=== PATIENT | male | born 1990 | race Caucasian/White ===

== ENCOUNTER → 2017-04-25 | Outpatient (CLI) | payer OTHER ==
[~2017-04-25] MED LIST: AUGMENTIN 500 M1 TAB PO; KEFLEX 500MG.500 MG PO; MEDROL 4MG. DOSE4 MG PO; PROTONIX 40MG T40 MG PO
[2017-04-28 04:39] LABS: Rapid Plasma Reagin, Quant Non Reactive (NonRea<1:1)
[2017-04-28 05:35] LABS: HBsAg Screen Negative (Negative); HIV Screen 4th Generation wRfx Non Reactive (Non Reactive); Hep A Ab, IgM Negative (Negative); Hep B Core Ab, IgM Negative (Negative); Hep C Virus Ab <0.1 (0.0-0.9)
== END ==
LOC: LAB 17:21
PROVIDERS: Internal Medicine Adolescent Medicine
DX: A56.01 Chlamydial cystitis and urethritis (principal); Z11.3 Encounter for screening for infections with a predominantly sexual mode of transmission
CPT/HCPCS: G0432

== ENCOUNTER 2017-04-28 17:40 | Emergency (ER) | payer BC ==
[~2017-04-28] VITALS: Ht 172.7 cm; Wt 121.1 kg
[~2017-04-28 17:40] MED LIST changes: -PROTONIX 40MG T40 MG PO
--- NOTE | 2017-04-28 18:24 | Emergency Room Report ---
History of Present Illness Time Seen by 1800 Presenting Problem in Triage Pt arrived:Walked Presenting Problem:PT ADVISES HE FEELS LIKE THERE IS SOMETHING IN HIS THROAT AND IT HURTS WHEN HE SWALLOWS PT SENT TO ER FOR FURTHER EVALUATION Onset of symptoms date/time:/ or onset unknown for:MEDICAL HX UNKNOWN Treatment Prior to Arrival: [employer] Provided by: Sepsis Risk Assessment: Temp: 97.9 B/P: 130/70 MAP: 90 Pulse: 71 Resp: 16 Recent fever? N Clinical Suspician of Infection? N Mental Status: 1 - Regular (Normal Baseline) Sepsis Risk:Low Sepsis Risk Have you (or family members/close friends) recently traveled outside the [place]? N If Yes, where/when: Have you had exposure to infectious disease within the past month? N TB? Other? Specify: Source patient, RN notes reviewed, family, old records Exam Limitations no limitations Comment for 2 days feeling of fb in esophageal area but able to drink water and solid but has pain with this- has gerd but no melena Cardiac Chest Pain Chest pain indicative of cardiac No Timing/Duration this evening Severity moderate ALLERGIES Coded Allergies: No Known Allergies (04/28/17) Home Medications Reported Medications No Known Home Medications History Medical History General CAD? No Angina: No [place]: No Hypertension? No Hyperlipidemia? No CHF? No DVT? No PE? No COPD? No Asthma? No Anemia? No GERD? No Gastric ulcers? No GI Bleed? No Hernia? No Thyroid Problems? No Hypothyroidism? No CVA? No Seizures? No Diabetes? No Renal Insuffiency? No End Stage Renal Disease? No UTI? No Stones? No GB Disease: No Nephritic Syndrome? No Asplenia? No Hepatitis? No Sickle Cell Disease? No Arthritis? No Migraines? No Cataracts? No Glaucoma? No MRSA? No HIV? No TB? No Anxiety? No Depression? No Cancer? No More? No Immunization Hx DT/Tetanus 5-10 YRS Surgical Hx Previous Surgery?Y HERNIA REPAIR Social History Smoking Hx Smoker: Current Every Day Smoker Tobacco: Yes Type Cigarettes Packs/day < 1 Pack Alcohol Alcohol: No Drugs none Review of Systems All Other Systems Reviewed and Negative Constitutional denies fever Eyes denies drainage ENT denies: ear discharge, epistaxis, throat pain. Respiratory denies cough, denies shortness of breath, denies wheezing Cardiovascular denies chest pain, denies syncope Gastrointestinal see HPI, abdominal pain, denies nausea, denies vomiting Genitourinary denies: dysuria, frequency, hesitancy, hematuria. Musculoskeletal denies back pain, denies joint pain, denies joint swelling, denies neck pain Skin denies rash Psychiatric/Neurological denies headache, denies seizure Physical Exam Vital Signs Vital Signs Date Time Temp Pulse Resp B/P Pulse O2 O2 Flow FiO2 Ox Delivery Rate 04/28 1808 97.9 71 16 130/70 98 04/28 1751 97.9 71 16 130/70 98 - WBC >12,000 or <4,000 or 10% bands? 2 or more SIRS Criteria Met? B/P:130/70 MAP:90 Creatinine >2.0? UA output<0.5ml/kg/hr for 2 hrs? Platelet count >100,000? Lactate >2.0mmol/1? INR >1.2 or PTT > than 60 sec? Evidence of Organ Dysfunction? Provider documented clinical suspician of infection? N Sepsis Criteria Count: 0 Sepsis Risk: Low Sepsis Risk General Appearance no apparent distress Eye Exam - bilateral eye PERRL, bilateral eye EOMI Ear, Nose, Throat normal ENT inspection Neck supple, nl masses or thyroidmegly Respiratory Status No: respiratory distress. Lung Sounds bilateral: lungs clear. Cardiovascular regular rate/rhythm, no murmur Peripheral Pulses Pulses normal Yes Gastrointestinal soft, no organomegaly, no pulsatile mass, no guarding, no rebound Extremities normal inspection Strength 4 Upper Ext (L), 4 Upper Ext (R), 4 Lower Ext (L), 4 Lower Ext (R) Neurologic alert, executive administrative asst II-XII nml as tested, no motor/sensory deficits Reflexes Reflexes normal No Mental status normal mood/affect Skin no rash cons.w/shingles Medical Decision Making LABS/Meds/Orders Pt receiving controlled substance in ED? No Results/Orders Laboratory Tests 04/28/17 1830: Sodium 140, Potassium 3.9, Chloride 104, Carbon Dioxide 26, BUN 11, Creatinine 0.8, Estimated Creat Clear 235 H, Estimated GFR (MDRD) 115, Glucose 89, Calcium 9.7, Total Bilirubin 0.3, AST 23, ALT 62, Alkaline Phosphatase 87, Troponin I < 0.02, Total Protein 8.1, Albumin 4.5, Globulin 3.6 H, Albumin/Globulin Ratio 1.3, Lipase 110, TSH 1.09, Thyroxine (T4) 9.0, WBC 11.8 H, RBC 5.73, Hgb 16.7, Hct 49.6, MCV 86.5, RDW 12.6, Plt Count 257, MPV 6.9 L, Gran % 62.0, Gran # 7.3 , Lymphocytes % 30.7, Monocytes % 5.6, Eosinophils % 1.3, Basophils % 0.4, Lymphocytes # 3.6, Monocytes # 0.7, Eosinophils # 0.2, Basophils # 0.1, PUBS MCHC 33.7, MCH 29.2 Current Medication Orders Sig/Bonilla Start time Last Medication Dose Route Stop Time Status Admin Diatrizoate Meglum/ 30 ML ONCE ONE 04/28 1845 DC 04/28 Diatrizoate Sod PO 04/28 Diatrizoate Meglum/ 0 .STK-MED ONE 04/28 1835 DC Diatrizoate Sod .ROUTE Orders Procedure Date/time Status DIET-NOTHING BY MOUTH 04/[address] CHEST W/O CONTRAST 04/[address] ABD W/O CONT(RENAL ST.orAPP 04/[address] SCAN REQ 04/28 1825 Complete THYROID STIMULATING HORMONE 04/28 182 Complete TROPONIN I 04/28 1825 Complete THYROXINE (T4) 04/28 182 Complete LIPASE 04/28 182 Complete COMPLETE METABOLIC PANEL 04/28 1825 Complete CBC WITH AUTO DIFF 04/28 1825 Complete XRAY/CT/US XRAY/CT/US CT chest CT interpretation by discussed w/radiologist Time results known: 1927 CT Results normal/NAD Departure Departure Time of Disposition 1927 Disposition DC Home or Self Care(routine) Clinical Impression Primary Impression: Gastritis Qualifiers: Gastritis type: unspecified gastritis Chronicity: acute Gastritis bleeding: without bleeding Qualified Code: K29.00 - Acute gastritis without bleeding Condition STABLE Referrals Tomas Wang MD (Family) Patient Instructions DI for Gastroesophageal Reflux Disease (GERD) Additional Instructions use meds and see pcp for possible egd Discharge Counseling Counseled pt/family regarding diagnosis, test results, medications/RX, follow up needs Prescriptions Current Visit Scripts Pantoprazole Sodium (Protonix 40MG TAB) 40 MG PO DAILY #30 TAB ED Critical Care Critical Care No at 1930
[2017-04-28 18:47] LABS: HEMOGLOBIN 16.7 g/dL (14.1-18.0); LYMPH # 3.6 K/mm3 (0.7-4.5); LYMPH % 30.7 % (10-50)
[2017-04-28 19:03] LABS: BUN 11 mg/dL (7-18)
[2017-04-28 19:18] LABS: GFR (ESTIMATED) 115 ML/MIN (>60)
[2017-04-28] MEDS ORDERED: PROTONIX 40MG T40 MG PO (19:30)
[2017-04-28 19:39] VITALS: BP 136/88
--- NOTE | 2017-04-30 09:12 | RADIOLOGY REPORT PS360 ---
CT CHEST W/O CONTRAST Ordering Physician: Celia Curry MD Patient Age: 26 years: Male HISTORY: DIFFICULTY SWALLOWING/ABDOMINAL PAINdifficultyswallowing with abdominal pain dysphagia generalized abdominal pain TECHNIQ..UE: Helical CT scanning performed the abdomen and pelvis following oral contrast only. No IV contrast utilized. COMPARISON : FINDINGS lungs appear clear with no focal pneumonia. There is some mild atelectasis and and perhaps some minimal fibrotic or scarring changes at the posterior aspect of the lower lobes bilaterally right slightly more so than left Airways appear satisfactory with upper normal thickness. The isadora and mediastinal structures satisfactory. No adenopathy. No mass. Aorta is normal in caliber. The neck only partially imaged. There appears to be a prominent lymphoid tissue at base the tongue and vallecula are reflecting prominent lingual tonsil features. Upper normal thickness of the tissues at the posterior supraglottic region. This may correlate with patient's dysphasia. Administered enteric contrast outlines the normal appearing thoracic esophagus. No leakage or lesion evident on this survey. Upper normal wall thickness at the esophagus but no focal abnormalities. GE junction region unremarkable. CT abdomen report will follow. T-spine intact. Chest wall unremarkable. No pleural lesions. IMPRESSION: 1. No acute cardiopulmonary findings.. . No focal pneumonia. No pneumothorax. No pleural effusion Mild dependent atelectasis, with perhaps scant scarring along the posterior lower lobes bilateral. . 2. Thoracic Esophagus satisfactory by CT. Upper normal wall thickness. 3. . Incidental note prominent lymphoid tissue at lingual tonsil partially imaged -may contribute to dysphagia Also Question perhaps mild thickening & minor edema subglottic region involving aryepiglottic folds & false cords. Clinical correlation required. On this CT I might question some minor inflammation here. Clinical correlation required .
--- NOTE | 2017-04-30 09:31 | RADIOLOGY REPORT PS360 ---
CT ABD W/O CONT Ordering Physician: Celia Curry MD Patient Age: 26 years: Male HISTORY: DIFFICULTY SWALLOWING/ABDOMINAL PAIN TECHNIQUE: Helical CT scanning performed abdomen only with no IV contrast utilized. Oral enteric contrast was utilized. Pelvis not imaged. Sagittal coronal reconstruction CT workstation COMPARISON :No previous. CT chest the date utilized. FINDINGS Lung bases with no acute findings mild dependent atelectasis. Heart normal size. Lack of IV contrast decreases sensitivity but oral contrast was utilized. Only the abdomen was studied The liver, spleen, adrenals, and kidneys appear satisfactory. Accessory splenule 12 mm posterior medial aspect of spleen. Kidneys are slightly lobulated bilaterally but no calculi nor obstruction. Ureters unremarkable. No retroperitoneal nor mesenteric adenopathy. Gallbladder is contracted and not well seen unremarkable. No gallstones evident. . Pancreas. Generous volume of the pancreas throughout most evident at the head and body and then tapering tail. Slightly undulating contour of pancreas yields almost slightly lobulated in character appearance at the distal body towards tail but on reviewing all images on this noncontrast study I favor this is most likely normal pancreatic tissue in this 26-year-old.. If there is any persistent upper abdominal pain a follow-up CT with contrast to further evaluate pancreas be warranted. Correlation with amylase lipase also suggested. Adrenals unremarkable. The pelvis is not included... Appendix included and appears normal. Would note the right colon not fixed in the typical right retroperitoneal position and appear mobile-. It is seen extending in oblique fashion towards the midline and the cecum at midline just above the bladder. GI tract. Oral contrast fills the stomach. Upper normal wall thickness at the distal stomach may reflect contraction. Difficult to exclude some wall thickening due to inflammation here but more likely contraction from peristalsis. If pain upper epigastric region persists this may warrant follow-up. Similarly the duodenal bulb with upper normal wall thickness difficult to exclude duodenitis. The duodenal loop appears normal. The proximal small bowel appears normal. Osseous structures intact IMPRESSION 1. No significant appearing acute findings. 2. Minor observations not felt to be acute significance..: ... Generous wall thickness at distal stomach/antrum is most likely due to peristalsis. ... Generous Caliber pancreas throughout, most notable at distal body pancreas as discussed above. Most likely normal in this young patient. However if upper epigastric symptoms she may want to check amylase & lipase. ... Anatomical variation: right colon does not appear to be fixed and is mobile. It Passes oblique fashion at the anterior abdomen with cecum midline above bladder ..
== END 2017-04-28 19:40 | disposition home or self-care (01) ==
LOC: UTC 17:40 → ER 17:48
PROVIDERS: Emergency Medicine
DX: K29.00 Acute gastritis without bleeding (principal); F17.210 Nicotine dependence, cigarettes, uncomplicated